=== PATIENT | female | born 1965 | race Caucasian/White ===

== ENCOUNTER → 2024-12-31 | Emergency (ER) | payer BC ==
[~2024-12-31] VITALS: Ht 170.2 cm; Wt 72.6 kg
[~2024-12-31] MED LIST: KETOROLAC TROMETHAMINE 30 MG VIAL IM ONE; KETOROLAC TROMETHAMINE 30 MG VIAL ONE; LEVOTHYROXINE88 MC1 PO; ZESTRIL20 MG PO
== END | disposition home or self-care (01) ==
LOC: ER 16:07
DX: S92.911A Unspecified fracture of right toe(s), initial encounter for closed fracture (principal); W20.8XXA Other cause of strike by thrown, projected or falling object, initial encounter; Y93.89 Activity, other specified; Y92.821 Forest as the place of occurrence of the external cause; Y99.8 Other external cause status; I10 Essential (primary) hypertension; E03.8 Other specified hypothyroidism; Z88.0 Allergy status to penicillin